=== PATIENT | female | born 1980 | race Caucasian/White ===

== ENCOUNTER 2018-10-31 14:40 | Emergency (ER) | payer OTHER ==
[2018-10-31 15:25] VITALS: BP 121/82
--- NOTE | 2018-10-31 15:42 | UC ---
Skin Complaint HPI - HPI Summary HPI Summary: LEFT BUTTOCK SKIN COMPLAINT. 5 DAYS AGO PT NOTED A POSSIBLE INSECT BITE THAT WAS PRUITIC AND TENDER . LAST FEW DAYS REDNESS IS WORSE AND NOW DRAINING PUS AND BLOOD.. NO CHILLS OR FEVER - History of Current Complaint Chief Complaint: UCSkin Time Seen by Provider: 10/31/18 15:22 Stated Complaint: SKIN COMPLAINT Hx Obtained From: Patient Hx Last Menstrual Period: 10/10/18 ?: No Onset/Duration: Sudden Onset, Lasting Days Skin Exposure Onset/Duration: Days Ago Timing: Constant Onset Severity: Moderate Current Severity: Severe Pain Intensity: 6 Character: Pain, Redness, Raised Aggravating Factor(s): Touch Associated Signs & Symptoms: Positive: Drainage Related History: Possible Reaction to: Insect - Allergy/Home Medications Allergies/Adverse Reactions: Allergies Allergy/AdvReac Type Severity Reaction Status Date / Time No Known Allergies Allergy Verified 10/31/18 15:16 Home Medications: Home Medications Copper (Iud) [Paragard IUD] 1 unit IU 10/31/18 [History] PMH/Surg Hx/FS Hx/Imm Hx Previously Healthy: Yes - Surgical History Surgical History: None - Family History Known Family History: Positive: Cardiac Disease, Hypertension - Social History Alcohol Use: Occasionally Substance Use Type: None Smoking Status (MU): Heavy Every Day Tobacco Smoker Type: Cigarettes Amount Used/How Often: 1/2 PPD Review of Systems All Other Systems Reviewed And Are Negative: Yes Skin: Positive: Other - redness and draingage from wound Is Patient Immunocompromised?: No Physical Exam Triage Information Reviewed: Yes Appearance: Well-Appearing, Well-Nourished, Pain Distress Vital Signs: Initial Vital Signs Temp 97.6 F 10/31/18 15:18 Pulse 102 10/31/18 15:18 Resp 18 10/31/18 15:18 BP 121/82 10/31/18 15:18 Pulse Ox 98 10/31/18 15:18 Vital Signs Reviewed: Yes Eye Exam: Normal ENT Exam: Normal Dental Exam: Normal Neck exam: Normal Respiratory Exam: Normal Cardiovascular Exam: Normal Abdominal Exam: Normal Bowel Sounds: Positive: Present Musculoskeletal Exam: Normal Neurological Exam: Normal Psychological Exam: Normal Skin: Positive: Other - quarter size area of drainage from multiple openins in abscess. erythema and induration of wound noted. Course/Dx - Course Course Of Treatment: hx obtained, exam performed ,meds reviewed, abscess is already draining, placed on abx and culture obtained. - Differential Diagnoses - Skin Complaint Differential Diagnoses: Abscess - Diagnoses Provider Diagnosis: Abscess Discharge - Sign-Out/Discharge Documenting (check all that apply): Patient Departure All imaging exams completed and their final reports reviewed: No Studies - Discharge Plan Condition: Stable Disposition: HOME Prescriptions: Sulfamethox/Trimethoprim DS* [Bactrim DS 800/160 TAB*] 1 tab PO BID #14 tab Patient Education Materials: Abscess (ED) Referrals: Kaela Vickers PA [Primary Care Provider] - Additional Instructions: 1. take the medication as prescribed. with food! 2. Warm water soaks/ hot packs 2-3 times a day 3. Follow up if not improving - Billing Disposition and Condition Condition: STABLE Disposition: Home
== END 2018-10-31 15:51 | disposition home or self-care (01) ==
LOC: UCCORT 14:40
DX: L02.31 Cutaneous abscess of buttock (principal); F17.210 Nicotine dependence, cigarettes, uncomplicated
CPT/HCPCS: 87070; 87077; 87186; 87205; 87640; 87641; 99202; G0463

== ENCOUNTER 2018-12-30 09:29 | Emergency (ER) | payer OTHER ==
[2018-12-30 09:53] VITALS: BP 135/80
--- NOTE | 2018-12-30 10:28 | ED ---
GI/ HPI - HPI Summary HPI Summary: 38 yr old female with the complaint of dysuria, and frequency and hesitancy of urination. Onset of symptoms three days ago. She denies fever, chills. She denies nausea and vomiting. She denies back pain. Her symptoms are moderate. - History of Current Complaint Chief Complaint: UCGU Time Seen by Provider: 12/30/18 10:03 Stated Complaint: URINARY COMPLAINT Hx Last Menstrual Period: 3 wks Pain Intensity: 0 - Allergy/Home Medications Allergies/Adverse Reactions: Allergies Allergy/AdvReac Type Severity Reaction Status Date / Time chlorine Allergy Difficulty Uncoded 12/30/18 09:54 Breathing/Wheezing PMH/Surg Hx/FS Hx/Imm Hx Infectious Disease History: Yes Infectious Disease History: Denies: Traveled Outside the [place] in Last 30 Days - Family History Known Family History: Positive: Cardiac Disease, Hypertension - Social History Alcohol Use: Occasionally Substance Use Type: Reports: None Smoking Status (MU): Heavy Every Day Tobacco Smoker Type: Cigarettes Amount Used/How Often: 1/2 PPD Review of Systems Constitutional: Negative Positive: dysuria, frequency, urgency All Other Systems Reviewed And Are Negative: Yes Physical Exam Triage Information Reviewed: Yes Vital Signs On Initial Exam: Initial Vitals Temp Pulse Resp BP Pulse Ox 98.2 F 85 20 135/80 99 12/30/18 09:48 12/30/18 09:48 12/30/18 09:48 12/30/18 09:48 12/30/18 09:48 Vital Signs Reviewed: Yes Appearance: Positive: Well-Appearing, No Pain Distress Skin: Positive: Warm, Skin Color Reflects Adequate Perfusion Head/Face: Positive: Normal Head/Face Inspection Eyes: Positive: EOMI, DEWAYNE ENT: Positive: Normal ENT inspection Neck: Positive: Nontender Respiratory/Lung Sounds: Positive: Clear to Auscultation, Breath Sounds Present Cardiovascular: Positive: RRR. Negative: Murmur Abdomen Description: Negative: Distended Musculoskeletal: Positive: Strength/ROM Intact Neurological: Positive: Sensory/Motor Intact, Alert, Oriented to Person Place, Time, CN Intact II-III Psychiatric: Positive: Normal - Griselda Coma Scale Best Eye Response: 4 - Spontaneous Best Motor Response: 6 - Obeys Commands Best Verbal Response: 5 - Oriented Coma Scale Total: 15 Diagnostics - Vital Signs Vital Signs Temp Pulse Resp BP Pulse Ox 12/30/18 09:48 98.2 F 85 20 135/80 99 - Laboratory Lab Results: Lab Results 12/30/18 12/30/18 Range/Units 09:58 10:01 POC Urine Color [place] POC Urine Clarity Slightly cloudy POC Urine pH 5.5 (5-9) POC Ur Specif [place] >= 1.030 (1.010-1.030) POC Urine Protein 1+ A (Negative) POC Ur Glucose (UA) Negative (Negative) POC Urine Ketones Negative (Negative) POC Urine Blood 1+ A (Negative) POC Urine Nitrite Positive A (Negative) POC Urine Bilirubin 1+ A (Negative) POC Urine Urobilinogen 0.2 (Negative) POC U Leukocyte Esteras 1+ A (Negative) POC Ur Test Negative (Negative) Lab Statement: Any lab studies that have been ordered have been reviewed, and results considered in the medical decision making process. GIGU Course/Dx - Course Course Of Treatment: 38 yr old with UTI. DC home on keflex - Diagnoses Provider Diagnoses: UTI (urinary tract infection) Discharge - Sign-Out/Discharge Documenting (check all that apply): Patient Departure All imaging exams completed and their final reports reviewed: No Studies - Discharge Plan Condition: Good Disposition: HOME Prescriptions: Cephalexin CAP* [Keflex CAP*] 500 mg PO TID #15 cap Patient Education Materials: Urinary Tract Infection in Women (ED) Referrals: Kaela Vickers PA [Primary Care Provider] - 2 Days - Billing Disposition and Condition Condition: GOOD Disposition: Home
== END 2018-12-30 10:25 | disposition home or self-care (01) ==
LOC: UCCORT 09:29
DX: N39.0 Urinary tract infection, site not specified (principal); B96.20 Unspecified Escherichia coli [E. coli] as the cause of diseases classified elsewhere; F17.210 Nicotine dependence, cigarettes, uncomplicated
CPT/HCPCS: 81003; 84702; 87077; 87086; 87186; 99212; G0463

== ENCOUNTER 2019-03-23 12:58 | Emergency (ER) | payer OTHER ==
[2019-03-23 13:40] VITALS: BP 136/83
--- NOTE | 2019-03-23 13:50 | UC ---
Throat Pain/Nasal Hubert HPI - HPI Summary HPI Summary: sinus pain and pressure x 10 days nasal congestion , cough , pnd , sore throat, + fever, chills , body achea - History of Current Complaint Chief Complaint: UCRespiratory Stated Complaint: COUGH/CONGESTION Time Seen by Provider: 03/23/19 13:40 Hx Obtained From: Patient Hx Last Menstrual Period: copper IUD; irregular menses Onset/Duration: Gradual Onset, Lasting Days - 10, Still Present Severity: Moderate Pain Intensity: 4 Cough: None Associated Signs & Symptoms: Positive: Sinus Discomfort, Fever - Allergies/Home Medications Allergies/Adverse Reactions: Allergies Allergy/AdvReac Type Severity Reaction Status Date / Time chlorine Allergy Difficulty Uncoded 03/23/19 13:34 Breathing/Wheezing PMH/Surg Hx/FS Hx/Imm Hx Psychological History: Anxiety - Surgical History Surgical History: Yes Surgery Procedure, Year, and Place: wisdom teeth - Family History Known Family History: Positive: Cardiac Disease, Hypertension - Social History Alcohol Use: Occasionally Substance Use Type: None Smoking Status (MU): Light Every Day Tobacco Smoker Type: Cigarettes Amount Used/How Often: 3 cigs/day Review of Systems All Other Systems Reviewed And Are Negative: Yes Constitutional: Positive: Negative Skin: Positive: Negative Eyes: Positive: Negative ENT: Positive: Sore Throat, Nasal Discharge, Sinus Congestion, Sinus Pain/ Tenderness Respiratory: Positive: Cough Cardiovascular: Positive: Negative Is Patient Immunocompromised?: No Physical Exam Triage Information Reviewed: Yes Appearance: Well-Appearing, No Pain Distress, Well-Nourished Vital Signs: Initial Vital Signs Temp 98.3 F 03/23/19 13:35 Pulse 103 03/23/19 13:35 Resp 16 03/23/19 13:35 BP 136/83 03/23/19 13:35 Pulse Ox 98 03/23/19 13:35 Vital Signs Reviewed: Yes Eye Exam: Normal Eyes: Positive: Conjunctiva Clear ENT: Positive: Normal ENT inspection, Hearing grossly normal, Pharynx normal, Pharyngeal erythema, Nasal drainage, Sinus tenderness Neck: Positive: Supple, Nontender, No Lymphadenopathy Respiratory Exam: Normal Respiratory: Positive: Chest non-tender, Lungs clear, Normal breath sounds Cardiovascular: Positive: RRR, No Murmur, Pulses Normal Throat Pain/Nasal Course/Dx - Differential Dx/Diagnosis Provider Diagnosis: Sinusitis Discharge ED - Sign-Out/Discharge Documenting (check all that apply): Patient Departure All imaging exams completed and their final reports reviewed: No Studies - Discharge Plan Condition: Stable Disposition: HOME Prescriptions: Amoxicillin/Clavulanate TAB* [Augmentin TAB 875*] 875 mg PO BID #20 tab Patient Education Materials: Sinusitis (ED) Forms: *Work Release Referrals: Kaela Vickers PA [Primary Care Provider] - If Needed - Billing Disposition and Condition Condition: STABLE Disposition: Home
== END 2019-03-23 14:01 | disposition home or self-care (01) ==
LOC: UCCORT 12:58
DX: J32.9 Chronic sinusitis, unspecified (principal); F17.210 Nicotine dependence, cigarettes, uncomplicated
CPT/HCPCS: 99212; G0463

== ENCOUNTER 2019-04-14 09:50 | Emergency (ER) | payer OTHER ==
[2019-04-14 10:50] VITALS: BP 136/94
--- NOTE | 2019-04-14 10:59 | UC ---
Hand/Wrist HPI - HPI Summary HPI Summary: 38-year-old female presents with dorsal right hand pain. 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 States pain intensity decreased and was tolerable so she continued to work. At break she started noticing some increase in the pain as well as swelling to the back of her hand. Reports full range of motion to her fingers and wrist. Notes pain worsens with flexion of the fingers and wrist. Right hand dominant. Denies numbness or tingling. - History Of Current Complaint Chief Complaint: UCUpperExtremity Stated Complaint: WC-RT HAND INJURY Time Seen by Provider: 04/14/19 10:46 Hx Obtained From: Patient Hx Last Menstrual Period: 04/09/19 Pain Intensity: 0 - Allergies/Home Medications Allergies/Adverse Reactions: Allergies Allergy/AdvReac Type Severity Reaction Status Date / Time chlorine Allergy Difficulty Uncoded 04/14/19 10:50 Breathing/Wheezing PMH/Surg Hx/FS Hx/Imm Hx Previously Healthy: Yes - Denies significant PMH - Surgical History Surgical History: Yes Surgery Procedure, Year, and Place: wisdom teeth - Family History Known Family History: Positive: Cardiac Disease, Hypertension - Social History Occupation: Employed Full-time Lives: Alone Alcohol Use: Occasionally Substance Use Type: None Smoking Status (MU): Light Every Day Tobacco Smoker Type: Cigarettes Amount Used/How Often: 3 cigs/day Review of Systems All Other Systems Reviewed And Are Negative: Yes Constitutional: Positive: Negative Skin: Negative: Bruising Respiratory: Positive: Negative Cardiovascular: Positive: Negative Gastrointestinal: Positive: Negative Genitourinary: Positive: Negative Motor: Negative: Weakness Neurovascular: Negative: Decreased Sensation Musculoskeletal: Positive: Other: - See HPI Neurological: Positive: Negative Is Patient Immunocompromised?: No Physical Exam - Summary Physical Exam Summary: GENERAL APPEARANCE: Well developed, well nourished, alert and cooperative, and appears to be in no acute distress. CARDIAC: Normal S1 and S2. No S3, S4 or murmurs. Rhythm is regular. There is no peripheral edema, cyanosis or pallor. Extremities are warm and well perfused. Capillary refill is less than 2 seconds. Peripheral pulses intact. LUNGS: Clear to auscultation without rales, rhonchi, wheezing or diminished breath sounds. ABDOMEN: Positive bowel sounds. Soft, nondistended, nontender. No guarding or rebound. No masses or hepatosplenomegally. MUSKULOSKELETAL: Normal muscular development. Normal gait. EXTREMITIES: Tenderness to the posterior right hand over the extensor digitorum of the the middle finger with mild edema. No gross deformity or ecchymosis noted. Full flexion and extension of all fingers. Digital Program Manager strength intact. Circulation and sensation intact. SKIN: Skin normal color, texture and turgor with no lesions or eruptions. Triage Information Reviewed: Yes Vital Signs: Initial Vital Signs Temp 98.1 F 04/14/19 10:47 Pulse 89 04/14/19 10:47 Resp 16 04/14/19 10:47 BP 136/94 04/14/19 10:47 Pulse Ox 100 04/14/19 10:47 Vital Signs Reviewed: Yes Diagnostics - Radiology No standard instances Radiology Interpretation Completed By: Radiologist Summary of Radiographic Findings: Order Information: HAND - RIGHT MINIMUM 3 VIEWS. INDICATION: Right hand pain. TECHNIQUE: 4 views of the right hand were obtained. FINDINGS: The soft tissues are unremarkable. The bone mineralization is within normal limits. No fracture is identified. Anatomic alignment is maintained. The joint spaces are preserved. IMPRESSION: NO EVIDENCE FOR FRACTURE. Hand/Wrist Course/Dx - Course Course Of Treatment: 38-year-old female presents with dorsal right hand pain. 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 States pain intensity decreased and was tolerable so she continued to work. At break she started noticing some increase in the pain as well as swelling to the back of her hand. Reports full range of motion to her fingers and wrist. Notes pain worsens with flexion of the fingers and wrist. Right hand dominant. Denies numbness or tingling. Afebrile. Vital signs stable. Patient had tenderness to the posterior right hand over the extensor digitorum of the the middle finger with mild edema. No gross deformity or ecchymosis noted. Full flexion and extension of all fingers. Digital Program Manager strength intact. Circulation and sensation intact. X-ray of the hand was negative for fracture. Recommend conservative treatment for likely tenosynovitis the right hand including [id number] analgesics and RACE. Patient was placed in a cockup wrist splint by the RN and instructed to wear until follow-up with orthopedic surgery in 5-7 days. Anticipatory guidance and warning symptoms were reviewed with the patient. Verbalizes understanding and agrees with plan of care. - Differential Dx/Diagnosis Differential Diagnosis/HQI/PQRI: Dislocation, Fracture, Sprain, Tendonitis Provider Diagnosis: Right hand pain Discharge ED - Sign-Out/Discharge Documenting (check all that apply): Patient Departure All imaging exams completed and their final reports reviewed: Yes - Discharge Plan Condition: Stable Disposition: HOME Patient Education Materials: Tenosynovitis (ED) Forms: *Work Release Referrals: Kaela Vickers PA [Primary Care Provider] - Romulo Blanc MD [Medical Doctor] - Additional Instructions: The x-ray performed in the clinic today showed no evidence of a fracture. I suspect that your symptoms are from inflammation of one or more of the tendons in the back of your hand. Rest the hand as much as possible. Wear the splint that was applied in the clinic until you have been evaluated by orthopedic surgery. You may remove to shower but should wear at all other times. Apply ice to the affected area for 15-20 minutes at least 4 times a day to help with the pain and swelling. Elevate the hand to help reduce swelling. Take acetaminophen (Tylenol) or ibuprofen (Advil, Motrin) according to directions as needed for pain. Follow up with orthopedic surgery in 5-7 days for further evaluation and treatment. Call for an appointment. Seek immediate medical attention if you have severe pain not managed with pain medication, develop numbness or tingling in the hand or fingers_, or have any worsening of symptoms. - Billing Disposition and Condition Condition: STABLE Disposition: Home
== END 2019-04-14 11:52 | disposition home or self-care (01) ==
LOC: UCCORT 09:50
DX: M79.641 Pain in right hand (principal); F17.210 Nicotine dependence, cigarettes, uncomplicated; Z91.09 Other allergy status, other than to drugs and biological substances
CPT/HCPCS: 99212; G0463

== ENCOUNTER 2019-05-03 13:21 | Emergency (ER) | payer OTHER ==
[2019-05-03 13:40] VITALS: BP 131/75
--- NOTE | 2019-05-12 15:44 | UC ---
Skin Complaint HPI - HPI Summary HPI Summary: 38 year female with no PMH, no difficulty with wound healing presents with laceration to left index finger after cutting her hand on a jar last night. She cannot handle the sight of her own blood and passed out, which is normal for her. the wound was cleaned by a family member. SHe presents today to have the wound evaluated as she is afraid she will pass out again. Full ROM, strength OK. - History of Current Complaint Chief Complaint: UCSkin Time Seen by Provider: 05/03/19 13:45 Stated Complaint: LEFT HAND INJURY Hx Obtained From: Patient Hx Last Menstrual Period: 05/03/19 ?: No Onset/Duration: Sudden Onset, Lasting Days Skin Exposure Onset/Duration: Days Ago - 24 hours Onset Severity: Mild Current Severity: None Pain Intensity: 0 Pain Scale Used: 0-10 Numeric Location: Discrete - Allergy/Home Medications Allergies/Adverse Reactions: Allergies Allergy/AdvReac Type Severity Reaction Status Date / Time chlorine Allergy Difficulty Uncoded 05/03/19 13:39 Breathing/Wheezing Home Medications: Home Medications Ibuprofen TAB* [Advil TAB*] 400 mg PO ONCE 05/03/19 [History Confirmed 05/03/19] Telephone-3 Fatty Acids/Fish Oil [Fish Oil 1200 mg] 1 tab PO DAILY 05/03/19 [ History Confirmed 05/03/19] PMH/Surg Hx/FS Hx/Imm Hx Previously Healthy: Yes - Surgical History Surgical History: Yes Surgery Procedure, Year, and Place: wisdom teeth - Family History Known Family History: Positive: Cardiac Disease, Hypertension, Non-Contributory - Social History Alcohol Use: Rare Substance Use Type: None Smoking Status (MU): Heavy Every Day Tobacco Smoker Type: Cigarettes Amount Used/How Often: 1/2 ppd Review of Systems All Other Systems Reviewed And Are Negative: Yes Constitutional: Positive: Negative Musculoskeletal: Positive: Decreased ROM, Edema, Myalgia Neurological: Positive: Negative Is Patient Immunocompromised?: No Physical Exam Triage Information Reviewed: Yes Appearance: Well-Appearing, No Pain Distress, Well-Nourished Vital Signs: Initial Vital Signs Temp 98.1 F 05/03/19 13:35 Pulse 84 05/03/19 13:35 Resp 16 05/03/19 13:35 BP 131/75 05/03/19 13:35 Pulse Ox 100 05/03/19 13:35 Vital Signs Reviewed: Yes Eyes: Positive: Conjunctiva Clear ENT: Positive: Hearing grossly normal Musculoskeletal: Positive: Strength Intact, ROM Intact Neurological Exam: Normal Neurological: Positive: Alert Psychological Exam: Normal Psychological: Positive: Normal Response To Family Skin: Positive: Other - small partial thickness laceration on left index finger , no bleeding, appearing to be healing well, no erythema, minimal edema. Course/Dx - Course Course Of Treatment: - No soaking area, washing hands/ running water OK - Use gloves during any activity with increase risk to bacteria/ dirt - ANtibiotics- begin taking if swelling, redness occurs - elevate, ice finger as needed for swelling, pain - Follow up with PCP if increased redness, swelling, pain - GO to ER with painful joints or fever, drainage - Diagnoses Provider Diagnosis: Laceration of finger, left Discharge ED - Sign-Out/Discharge Documenting (check all that apply): Patient Departure All imaging exams completed and their final reports reviewed: No Studies - Discharge Plan Condition: Good Disposition: HOME Prescriptions: Cephalexin CAP* [Keflex CAP*] 500 mg PO TID #15 cap Patient Education Materials: Laceration (ED), Skin Adhesive Care (ED) Forms: *Work Release Referrals: Romulo Blanc MD [Medical Doctor] - (Follow up if no improvement within 3-5 days ) Kaela Vickers PA [Primary Care Provider] - Additional Instructions: - No soaking area, washing hands/ running water OK - Use gloves during any activity with increase risk to bacteria/ dirt - ANtibiotics- begin taking if swelling, redness occurs - elevate, ice finger as needed for swelling, pain - Follow up with PCP if increased redness, swelling, pain - GO to ER with painful joints or fever, drainage - Billing Disposition and Condition Condition: GOOD Disposition: Home
== END 2019-05-03 14:31 | disposition home or self-care (01) ==
LOC: UCCORT 13:21
DX: S61.211A Laceration without foreign body of left index finger without damage to nail, initial encounter (principal); W26.8XXA Contact with other sharp object(s), not elsewhere classified, initial encounter; Y92.9 Unspecified place or not applicable; F17.210 Nicotine dependence, cigarettes, uncomplicated
CPT/HCPCS: 99212; G0463

== ENCOUNTER 2019-08-17 16:00 | Emergency (ER) | payer OTHER ==
[2019-08-17 16:41] VITALS: BP 126/86
[2019-08-17 16:58] LABS: Influenza A Molecular Negative (Negative); Influenza B Molecular Negative (Negative)
[2019-08-17] MEDS ORDERED: Albuterol HFA INHALER* 8 gm MDI INH ONE (17:05)
--- NOTE | 2019-08-17 17:21 | UC ---
Respiratory Complaint HPI - HPI Summary HPI Summary: 38 yo female with cough intermittently x 5 months currently x 2 weeks chest tightness and wheezing last fall was treated for walking pneumonia - History of Current Complaint Chief Complaint: UCGeneralIllness Stated Complaint: COUGH Time Seen by Provider: 08/17/19 16:42 Hx From Patient Unobtainable Due To: Dementia Hx Last Menstrual Period: 08/17/19 Onset/Duration: Sudden Onset, Lasting Weeks Severity Initially: Mild Severity Currently: Moderate Pain Intensity: 0 Pain Scale Used: 0-10 Numeric Character: Cough: Nonproductive Aggravating Factors: Nothing Alleviating Factors: Nothing Associated Signs And Symptoms: Positive: Wheezing - Allergies/Home Medications Allergies/Adverse Reactions: Allergies Allergy/AdvReac Type Severity Reaction Status Date / Time chlorine Allergy Difficulty Uncoded 08/17/19 16:36 Breathing/Wheezing Home Medications: Home Medications Acetaminophen [Tylenol Extra Strength] 1 tab PO ONCE 08/17/19 [History Confirmed 08/17/19] Dm/PE/Acetaminophen/Chlorphenr [Simona-[place] Plus Cld-Cough Cp] 1 dose PO ONCE 08/17/19 [History Confirmed 08/17/19] PMH/Surg Hx/FS Hx/Imm Hx Previously Healthy: Yes Respiratory History: Pneumonia - Surgical History Surgical History: Yes Surgery Procedure, Year, and Place: wisdom teeth - Family History Known Family History: Positive: Cardiac Disease, Hypertension, Non-Contributory - Social History Alcohol Use: Rare Substance Use Type: None Smoking Status (MU): Light Every Day Tobacco Smoker Type: Cigarettes Amount Used/How Often: 1/2 ppd Review of Systems All Other Systems Reviewed And Are Negative: Yes Constitutional: Positive: Negative Skin: Positive: Negative Eyes: Positive: Negative ENT: Positive: Negative Respiratory: Positive: Cough Cardiovascular: Positive: Negative Gastrointestinal: Positive: Negative Genitourinary: Positive: Negative Motor: Positive: Negative Neurovascular: Positive: Negative Musculoskeletal: Positive: Negative Neurological/Mental Status: Positive: Negative Psychological: Positive: Negative Physical Exam Triage Information Reviewed: Yes Appearance: Well-Appearing, No Pain Distress, Well-Nourished Vital Signs: Initial Vital Signs Temp 98.7 F 08/17/19 16:37 Pulse 91 08/17/19 16:37 Resp 15 08/17/19 16:37 BP 126/86 08/17/19 16:37 Pulse Ox 97 08/17/19 16:37 Vital Signs Reviewed: Yes Eyes: Positive: Conjunctiva Clear ENT: Positive: Normal ENT inspection Dental Exam: Normal Neck: Positive: Supple, Nontender, No Lymphadenopathy Respiratory: Positive: No respiratory distress, No accessory muscle use, Wheezing Cardiovascular: Positive: RRR, No Murmur. Negative: Tachycardia Abdomen Description: Positive: Nontender Musculoskeletal: Positive: ROM Intact, No Edema Neurological: Positive: Alert Psychological Exam: Normal Skin Exam: Normal Diagnostics - Laboratory Lab Results: influenza (-) - Radiology No standard instances Radiology Interpretation Completed By: Radiologist Summary of Radiographic Findings: Trace linear airspace opacification in the posterior costophrenic angle is favored to be atelectasis. Correlate with signs of pneumonia. Respiratory Course/Dx - Course Course Of Treatment: refuses to take prednisone - Differential Dx/Diagnosis Provider Diagnosis: Acute bronchitis Discharge ED - Sign-Out/Discharge Documenting (check all that apply): Patient Departure All imaging exams completed and their final reports reviewed: Yes - Discharge Plan Condition: Stable Disposition: HOME Prescriptions: Amoxicillin PO (*) [Amoxicillin 875 MG (*)] 875 mg PO BID #14 tab Patient Education Materials: Acute Bronchitis (ED), How to Use a Metered-Dose Inhaler and a Spacer (ED) Referrals: Kaela Vickers PA [Primary Care Provider] - 7 Days - Billing Disposition and Condition Condition: STABLE Disposition: Home
== END 2019-08-17 17:45 | disposition home or self-care (01) ==
LOC: UCCORT 16:00
DX: J20.9 Acute bronchitis, unspecified (principal); F17.210 Nicotine dependence, cigarettes, uncomplicated; Z91.09 Other allergy status, other than to drugs and biological substances
CPT/HCPCS: 71046; 99212; A9270-GY; G0463

== ENCOUNTER 2019-10-27 18:29 | Emergency (ER) | payer OTHER ==
[2019-10-27 18:48] VITALS: BP 138/99
== END 2019-10-27 19:06 | disposition home or self-care (01) ==
LOC: UCCORT 18:29